=== PATIENT | male | born 1985 | race Caucasian/White ===

== ENCOUNTER 2016-10-30 15:54 | Emergency (ER) | payer OTHER ==
[~2016-10-30] VITALS: Ht 175.3 cm; Wt 69.4 kg
[~2016-10-30 15:54] MED LIST: NORCOTAB PO
[2016-10-30] MEDS ORDERED: IBUPROFEN 600 MG TAB PO ONE (17:45)
[2016-10-30 18:56] VITALS: BP 133/77
--- NOTE | 2016-10-30 19:24 | REP ---
RIGHT RIBS WITH PA CHEST: REASON: Pain after trauma. PRIORS: None. Four views of the ribs with accompanying frontal view of the chest. The accompanying frontal view of the chest has been compared to the previous two view examination of the chest of 12/28/2015. FINDINGS: Five views of the ribs show no acute fracture or destructive osseous lesion. The accompanying frontal view of the chest shows no cardiomegaly, infiltrates, effusions or pneumothoraces. The accompanying frontal view of the chest is unchanged from the prior exam. IMPRESSION: Negative rib series. Signed by Hung Wiggins DO 10/30/2016 07:57 P
== END 2016-10-30 19:17 | disposition home or self-care (01) ==
LOC: M ED 17:44
DX: S20.211A Contusion of right front wall of thorax, initial encounter (principal); W10.9XXA Fall (on) (from) unspecified stairs and steps, initial encounter; Y92.89 Other specified places as the place of occurrence of the external cause; Y93.89 Activity, other specified; Y99.8 Other external cause status; Z91.040 Latex allergy status